=== PATIENT | female | born 1995 | race Caucasian/White ===

== ENCOUNTER → 2016-04-12 | Outpatient (CLI) | payer OTHER ==
[2016-04-16 00:17] LABS: CHLAMYDIA TRACH RNA*** NOT DETECTED (NOT DETECTED); GC (NEIS GONORRHOEAE)RNA** NOT DETECTED (NOT DETECTED)
== END | disposition home or self-care (01) ==
LOC: C.LABSPEC 17:54
PROVIDERS: ATTEND Obstetrics & Gynecology
DX: Z20.2 Contact with and (suspected) exposure to infections with a predominantly sexual mode of transmission (principal); N76.2 Acute vulvitis

== ENCOUNTER 2016-10-08 22:50 | Emergency (ER) | payer OTHER ==
[~2016-10-08] VITALS: Ht 160 cm; Wt 80.0 kg
[2016-10-08 22:52] VITALS: TEMP 36.6; Ht 160 cm; Wt 80.0 kg
[2016-10-08] MEDS ORDERED: IBUPROFEN 600 MG TAB PO STA (22:59)
--- NOTE | 2016-10-08 23:36 | EMERGENCY ROOM VISIT NOTE ---
ED Visit Note First contact with patient: 22:54 CHIEF COMPLAINT: Foot pain HISTORY OF PRESENT ILLNESS: This 21-year-old female patient presents to the emergency department ambulatory complaining of an injury to the right foot. The patient states that she [place] and the cow stepped onto her right foot. She complains of swelling and pain in the right foot which is worse with weightbearing and walking. She rates her discomfort a 7/ 10. She reports some numbness in the toes and the faculty wiggling the toes. The patient has taken any medication at home for the pain. There are no lacerations of the foot. No previous fractures of the foot. REVIEW OF SYSTEMS: GENERAL: A 6 system review of systems was completed with positives and pertinent negatives in the HPI. ALLERGIES: Sulfa antibiotics, Nickel MEDICATIONS: No chronic medications PMH: No significant past medical history. SOCIAL HISTORY: The patient lives locally with family. Nonsmoker. PHYSICAL EXAM: Vital Signs: Reviewed Nurse's notes, vital signs stable. GENERAL : This is a 21-year-old female, in no acute distress, but appears in pain, well- developed, well-nourished. MUSCULOSKELETAL: There is no visual deformity of the right foot. There is ecchymosis, edema, and tenderness over the dorsal area of the right foot over the area of the 3rd and 4th metatarsals. There is no warmth. There is no tenderness over the lateral or medial malleolus. No tenderness of the tib/fib. The range of motion of the ankle and foot are full. There is no tenderness over the plantar fascia. The skin is intact and there are no lacerations or puncture wounds. Dorsalis pedis pulse 2+. Capillary refill less than 2 seconds. RADIOGRAPHIC FINDINGS: RIGHT FOOT: No obvious fractures identified. EMERGENCY DEPARTMENT COURSE: I examined the patient. She was medicated with ibuprofen for pain. An X-ray of the right foot was reviewed by myself and reveals no obvious findings. The patient was placed in a postop shoe and instructed on the use of crutches. The patient was discharged home in good condition. DIAGNOSIS: Foot contusion Current/Historical Medications No Active Prescriptions or Reported Meds Allergies Coded Allergies: Sulfa Antibiotics (Verified Allergy, Unknown, RASH, 10/08/16) Nickel (Verified Adverse Reaction, Unknown, SKIN IRRITATION, 8/22/17) Vital Signs Date Time Temp Pulse Resp B/P (MAP) Pulse Ox O2 Delivery O2 Flow Rate FiO2 10/08/16 22:52 36.6 104 18 164/83 100 Room Air Medications Administered Medications (Trade) Dose Ordered Sig/Luis Antonio Route Start Time Stop Time Status Last Admin Dose Admin Ibuprofen (Motrin Tab) 600 mg NOW STAT PO 10/08/16 22:59 10/08/16 23:00 DC 10/08/16 23:06 600 MG Departure Information Impression Primary Impression: Contusion of foot Dispostion Home / Self-Care Condition GOOD Prescriptions No Active Prescriptions or Reported Meds Referrals Dale Lang M.D. (PCP) Patient Instructions [facility] Additional Instructions You have been treated in the Emergency Department for a foot injury. For pain control, you can use the following yebe-ycr-fcicxke medicines (if >12 yo): - Regular strength (325mg/tab) Tylenol (acetaminophen) 2 tabs every 4-6 hours as needed. Do not exceed 12 tablets in a 24 hour period. Avoid taking more than 4 grams (4000 mg) of Tylenol per day. This includes any other sources of acetaminophen you may take on a regular basis. - Regular strength (200 mg/tab) Advil (ibuprofen) 1-2 tabs every 4-6 hours as needed. Do not exceed a dose of 3200 mg per day. If this is a recent injury (<24 hrs), ice can be applied to the area of pain for the first 3 days to help decrease pain and inflammation. Wear the postoperative shoe and use the crutches until you're able to bear weight without pain. Follow-up with orthopedics if there is persistent or worsening pain. Return to the Emergency Department if your current symptoms worsen despite treatment course outlined above, or if you develop any of the following symptoms : intractable pain despite aforementioned treatment course or new onset of numbness or tingling of the foot. Problem Qualifiers Primary Impression: Contusion of foot Encounter type: initial encounter Laterality: right Qualified Codes: S90.31XA - Contusion of right foot, initial encounter
[2016-10-09 00:05] VITALS: BP 132/68; PULSE 82; O2SAT 99
--- NOTE | 2016-10-09 06:44 | DIAGNOSTIC IMAGING REPORT ---
RIGHT FOOT MIN 3 VIEWS ROUTINE HISTORY: 21 years-old Female right foot pain, cow stepped on foot Right COMPARISON: None available. TECHNIQUE: 3 views of the right foot FINDINGS: Mid foot alignment is anatomic on this nonweightbearing study. There is mild dorsal forefoot soft tissue swelling without acute fracture, dislocation or significant degenerative changes. There is bony protuberance along the lateral aspect of the distal fifth metatarsal shaft which may be anatomic variation or sequela of remote fracture. Negative for radiopaque foreign body. IMPRESSION: Mild dorsal forefoot soft tissue swelling without acute fracture or dislocation. The above report was generated using voice recognition software. It may contain grammatical, syntax or spelling errors. Electronically signed by: José Miguel Bower M.D. 10/09/2016 6:43 AM Dictated Date/Time: 10/09/2016 6:41 AM
== END 2016-10-09 00:05 | disposition home or self-care (01) ==
LOC: C.EDB 22:51 → C.EDA 10-09 00:05
DX: S90.31XA Contusion of right foot, initial encounter (principal); W55.89XA Other contact with other mammals, initial encounter; Y92.89 Other specified places as the place of occurrence of the external cause

== ENCOUNTER → 2017-05-28 | Outpatient (CLI) | payer OTHER | END | disposition home or self-care (01) | LOC: C.PAPS 10:50 → C.LABSPEC 10:50 | PROVIDERS: ATTEND Obstetrics & Gynecology | DX: Z11.3 Encounter for screening for infections with a predominantly sexual mode of transmission (principal) ==

== ENCOUNTER → 2017-05-28 | Outpatient (CLI) | payer OTHER | END | disposition home or self-care (01) | LOC: C.PAPS 11:43 | PROVIDERS: ATTEND Obstetrics & Gynecology | DX: Z12.4 Encounter for screening for malignant neoplasm of cervix (principal) ==